=== PATIENT | female | born 1960 | race Hispanic/Latino ===

== ENCOUNTER 2023-12-13 07:11 | Inpatient (IN) | payer OTHER ==
[~2023-12-13] VITALS: Ht 162.6 cm; Wt 88.1 kg
[2023-12-13] VITALS: BP 151/53; PULSE 62; RESP 18
[2023-12-13 07:44] LABS: HEMATOCRIT 40.2 % (36-48); MEAN CORPUSCULAR HEMOGLOBIN 30.4 pg (27.0-33.0); MEAN CORPUSCULAR HGB CONC 33.8 g/dL (32.0-36.0); MEAN CORPUSCULAR VOLUME 89.9 fL (79-99); RED BLOOD CELL COUNT(AUTO) 4.47 MIL/uL (4.00-5.50); RED CELL DISTRIBUTION WIDTH 12.2 % (11.0-15.5)
[2023-12-13 07:50] LABS: APPEARANCE,URINE CLEAR (CLEAR); BILIRUBIN,URINE NEGATIVE (NEGATIVE); COLOR,URINE COLORLESS (YELLOW); GLUCOSE, URINE (UA) 500 mg/dL (NEGATIVE); KETONES,URINE NEGATIVE (NEGATIVE); LEUKOCYTE ESTERASE ,URINE NEGATIVE Leu/uL (NEGATIVE); NITRATE,URINE NEGATIVE (NEGATIVE); OCCULT BLOOD,URINE NEGATIVE (NEGATIVE); PH,URINE 6.5 (5.0-8.0); PROTEIN,URINE 50 mg/dL (NEGATIVE); UROBILINOGEN,URINE 0.2 mg/dL (0.2-1.0)
[2023-12-13] MEDS: NITROGLYCERIN 1GM OINT 1 INCH/1GM TD ONE (08:04)
[2023-12-13] MEDS: ASPIRIN 325MG TAB PO ONE (08:04)
[2023-12-13] MEDS: ENOXAPARIN SODIUM 80 MG/0.8 ML SQ ONE (08:05)
[2023-12-13 08:06] LABS: MAGNESIUM 1.9 mg/dL (1.80-2.40)
[2023-12-13 08:14] LABS: ADD UA MICROSCOPIC YES
[2023-12-13 08:17] LABS: RBC,URINE 0-1 /HPF (0-1); SQUAMOUS EPITHELIAL CELL,UR RARE /HPF (0-2); WBC,URINE 0-1 /HPF (0-1)
[2023-12-13] MEDS ORDERED: ONDANSETRON 4MG INJ IVP PRN (12:30)
[2023-12-13] MEDS ORDERED: GLUCAGON 1MG KIT 1 MG ML IM PRN (12:30)
[2023-12-13] MEDS ORDERED: DEXTROSE 50%-WATER 50 ML DISP.SYRIN IV PRN (12:30)
[2023-12-13] MEDS ORDERED: ACETAMINOPHEN 500 MG TABLET PO PRN (12:30)
[2023-12-13 13:14] LABS: CREATININE,URINE RANDOM 12.73 mg/dL (30-135)
[2023-12-13 13:17] LABS: HEMOGLOBIN A1C 10.5 % (4.0-6.0)
[2023-12-13 13:49] LABS: THYROID STIMULATING HORMONE 1.89 uIU/mL (0.36-3.74)
[2023-12-13] MEDS: METOPROLOL TARTRATE 25 MG TAB PO SCH (14:13)
[2023-12-13] MEDS: FUROSEMIDE 40MG VIAL IV SCH (14:13)
[2023-12-13] MEDS: INSULIN GLARGINE 100 UNITS/ML 10 ML VIAL SQ ONE (14:16)
[2023-12-13 14:30] VITALS: BP 156/57; PULSE 73; RESP 18
[2023-12-13 14:34] LABS: ALBUMIN 3.5 g/dL (3.5-5.0); BILIRUBIN,DIRECT 0.1 mg/dL (0.0-0.3); BILIRUBIN,TOTAL 0.4 mg/dL (0.2-1.0); TOTAL PROTEIN, SERUM 7.3 g/dL (6.0-8.3)
[2023-12-13 14:34] LABS: INR <= 0.93 (0.85-1.15); PROTHROMBIN TIME 10.6 SEC (9.6-11.6)
[2023-12-13 14:35] LABS: PARTIAL THROMBOPLASTIN TIME 30.8 SEC (26.3-35.5)
[2023-12-13] MEDS ORDERED: LOSA100T59 PO (15:18)
[2023-12-13] MEDS ORDERED: INSLAN SQ (15:18)
[2023-12-13] MEDS ORDERED: AMLO-257 PO (15:18)
[2023-12-13] MEDS ORDERED: [UNRECOGNIZED DRUG - OTHER] PO (15:18)
[2023-12-13 15:20] VITALS: BP 144/53; PULSE 61; RESP 18
[2023-12-13 15:25] VITALS: O2SAT 98
[2023-12-13] MEDS: INSULIN HUMULIN R 100 UNIT/ML 3ML SQ SCH (16:50)
[2023-12-13] MEDS: ATORVASTATIN 40 MG TABLET PO SCH (19:32)
[2023-12-13 20:00] VITALS: BP 156/60; PULSE 69; RESP 18; O2SAT 94
[2023-12-13 20:38] LABS: HIV 1&2 ANTIBODY Non-Reactive (Negative)
[2023-12-13 20:39] LABS: HIV-1 p24 Antigen Non-Reactive (Negative)
[2023-12-14] VITALS (8 sets, daily range): BP systolic 96–168; BP diastolic 53–64; PULSE 61–72; RESP 18; O2SAT 94–97
[2023-12-14 06:01] LABS: EOSINOPHILS # (AUTO) 0.01 K/uL (0.00-0.70); EOSINOPHILS % (AUTO) 0.2 % (0.0-8.0); HEMATOCRIT 34.6 % (36-48); IMMATURE GRANULOCYTE ABSOLUTE 0.01 K/uL (0-1); LYMPHOCYTES # (AUTO) 2.1 K/uL (1.0-4.8); LYMPHOCYTES % (AUTO) 42.9 % (21.0-51.0); MEAN CORPUSCULAR HEMOGLOBIN 29.8 pg (27.0-33.0); MEAN CORPUSCULAR HGB CONC 32.9 g/dL (32.0-36.0); MEAN CORPUSCULAR VOLUME 90.3 fL (79-99); MONOCYTES # (AUTO) 0.4 K/uL (0.1-1.0); MONOCYTES % (AUTO) 8.7 % (3.0-13.0); NEUTROPHILS # (AUTO) 2.4 K/uL (1.8-7.7); PLATELET COUNT (AUTO) 316 K/uL (130-400); RED BLOOD CELL COUNT(AUTO) 3.83 MIL/uL (4.00-5.50); RED CELL DISTRIBUTION WIDTH 12.2 % (11.0-15.5)
[2023-12-14 06:31] LABS: ALBUMIN 3.1 g/dL (3.5-5.0); BILIRUBIN,TOTAL 0.4 mg/dL (0.2-1.0); CREATININE 0.9 mg/dL (0.5-1.0); MAGNESIUM 1.8 mg/dL (1.80-2.40); POTASSIUM 4.8 mmol/L (3.5-5.1); TOTAL PROTEIN, SERUM 6.4 g/dL (6.0-8.3)
[2023-12-14] MEDS: LOSARTAN 100 MG TABLET PO SCH (07:57)
[2023-12-14] MEDS: PANTOPRAZOLE 40 MG TAB DR PO SCH (07:57)
[2023-12-14] MEDS: FUROSEMIDE 40MG VIAL IV SCH (07:57)
[2023-12-14] MEDS: ENOXAPARIN SODIUM 40 MG/0.4 ML SYRINGE SQ SCH (07:58)
[2023-12-14] MEDS: REGADENOSON 0.4 MG/5 ML PF SYG IVP ONE (16:03)
[2023-12-14] MEDS: INSULIN GLARGINE 100 UNITS/ML 10 ML VIAL SQ SCH (21:10)
[2023-12-15 00:13] VITALS: BP 112/70; PULSE 94; RESP 18
[2023-12-15 04:31] VITALS: BP 134/48; PULSE 53; RESP 18
[2023-12-15 05:03] LABS: EOSINOPHILS # (AUTO) 0.01 K/uL (0.00-0.70); EOSINOPHILS % (AUTO) 0.2 % (0.0-8.0); HEMATOCRIT 37.2 % (36-48); IMMATURE GRANULOCYTE ABSOLUTE 0.02 K/uL (0-1); LYMPHOCYTES # (AUTO) 1.7 K/uL (1.0-4.8); LYMPHOCYTES % (AUTO) 25.1 % (21.0-51.0); MEAN CORPUSCULAR HEMOGLOBIN 30.3 pg (27.0-33.0); MEAN CORPUSCULAR HGB CONC 33.6 g/dL (32.0-36.0); MEAN CORPUSCULAR VOLUME 90.3 fL (79-99); MONOCYTES # (AUTO) 0.5 K/uL (0.1-1.0); MONOCYTES % (AUTO) 7.5 % (3.0-13.0); NEUTROPHILS # (AUTO) 4.4 K/uL (1.8-7.7); NEUTROPHILS % (AUTO) 66.9 % (40.0-77.0); PLATELET COUNT (AUTO) 327 K/uL (130-400); RED BLOOD CELL COUNT(AUTO) 4.12 MIL/uL (4.00-5.50); RED CELL DISTRIBUTION WIDTH 12.1 % (11.0-15.5); WHITE BLOOD COUNT (AUTO) 6.6 K/uL (4.8-10.8)
[2023-12-15 05:26] LABS: ALBUMIN 3.3 g/dL (3.5-5.0); BILIRUBIN,TOTAL 0.4 mg/dL (0.2-1.0); CREATININE 0.9 mg/dL (0.5-1.0); MAGNESIUM 1.7 mg/dL (1.80-2.40); POTASSIUM 4.4 mmol/L (3.5-5.1); TOTAL PROTEIN, SERUM 6.7 g/dL (6.0-8.3)
[2023-12-15] MEDS: MAGNESIUM 2GM PREMIX 50ML 50 ML IV SCH (06:16)
[2023-12-15 07:10] VITALS: BP 141/65; PULSE 64; RESP 18
[2023-12-15] MEDS ORDERED: ATOR40TA69 PO (07:48)
[2023-12-15] MEDS ORDERED: METO25 PO (07:48)
[2023-12-15] MEDS ORDERED: DAPA10TA PO (07:48)
[2023-12-15 08:00] VITALS: O2SAT 97
[2023-12-15 11:35] LABS: RAPID PLASMA REAGIN NONREACTIVE (NONREACTIVE)
[2023-12-15 11:50] VITALS: BP 149/64; PULSE 68; RESP 17
[2023-12-15] MEDS ORDERED: AMLO-257 PO (11:54)
[2023-12-15 15:13] LABS: ANTI-SCLERODERMA 70 <0.2 AI (0.0-0.9)
[2023-12-17 15:14] LABS: ATYPICAL P-ANCA AB <1:20 titer (Neg:<1:20); CYTOPLASMIC (C-ANCA) AB, IGG <1:20 titer (Neg:<1:20)
== END 2023-12-15 13:20 | disposition home or self-care (01) | DRG 291 ==
LOC: EDH 07:11 → EDHIP 07:12 → 4AH 14:30
PROVIDERS: ADMIT Internal Medicine; ATTEND Internal Medicine
DX: I11.0 Hypertensive heart disease with heart failure (principal); I50.31 Acute diastolic (congestive) heart failure; I16.1 Hypertensive emergency; E66.9 Obesity, unspecified; E11.21 Type 2 diabetes mellitus with diabetic nephropathy; E11.319 Type 2 diabetes mellitus with unspecified diabetic retinopathy without macular edema; E87.70 Fluid overload, unspecified; I25.119 Atherosclerotic heart disease of native coronary artery with unspecified angina pectoris; Z79.4 Long term (current) use of insulin; Z79.899 Other long term (current) drug therapy; Z68.33 Body mass index [BMI] 33.0-33.9, adult
CPT/HCPCS: 36415; 71045; 76376; 76705; 76770; 78452; 80048; 80053; 80061; 80076; 81001; 82550; 82570; 82948; 83036; 83735; 83880; 84156; 84439; 84443; 84481; 84484; 85025; 85027; 85610; 85730; 86038; 86060; 86160; 86215; 86235; 86255; 86334; 86592; 86701; 86705; 86709; 86803; 87340; 87390; 93005; 93017; 93306; 93356; 93880; 93970; 96372; 96374; A9500; G0378; J1650; J1815; J1940; J2785; J3475